=== PATIENT | male | born 2000 | race Caucasian/White ===

== ENCOUNTER 2023-02-12 16:09 | Outpatient (RCR) | payer OTHER, SELFPAY | END 2023-02-14 07:51 | disposition home or self-care (01) | LOC: RPT 16:09 | PROVIDERS: ATTENDING PHYSICIAN Orthopaedic Surgery Hand Surgery; PRIMARYCARE PHYSICIAN Family Medicine | DX: M75.21 Bicipital tendinitis, right shoulder (principal) | CPT/HCPCS: 97110 ==

== ENCOUNTER 2023-08-06 20:37 | Emergency (ER) | payer OTHER, SELFPAY ==
[2023-08-06 20:56] VITALS: BP 142/96
[2023-08-06] MEDS: ZOFRAN ODT (ORALLY DISINTEGRATING) 4 MG PO (21:02)
--- NOTE | 2023-08-06 22:48 | ED.GENMED ---
History of Present Illness
<GONSALO Reed - Last Filed: 08/07/23 02:49>
General
Chief Complaint: Throat Problem
Source: patient and family
Time Seen by Provider: 08/06/23 22:32
Travel History
Have you had any contact with someone who has COVID-19?: No
Do you have any symptoms of coronavirus? Fever > 100 degrees, chills, cough, shortness of breath, sore throat, loss of taste or smell, muscle aches, or headache?: No
History of Present Illness
History of Present Illness:
22 year old male with no significant past medical hx s/p tonsillectomy today brought in by parents for throat bleeding that began 1 hour [employer]. Pt had tonsillectomy today at [facility] at around 1500. Pt developed bleeding and was told by ENT to
visit the ER. He also reports throat pain and and nausea. States his throat feels like it is closing up. Denies any chest pain, fevers/chills. Denies any bleeding disorder. Pt is not on any blood thinners. He has not taken anything for pain.
Past History
<GONSALO Reed - Last Filed: 08/07/23 02:49>
Past History
ED Past Medical History: Other (Migraine headaches)
ED Past Surgical History: None
Social History
Tobacco: Non-smoker
Alcohol: None
Personal: Single
Living: with family
Employment: Student (College student)
Family History
Family History: Other (Noncontributory)
Review of Systems
<GONSALO Reed - Last Filed: 08/07/23 02:49>
Review of Systems
Allergies reviewed?: Yes
All Other Systems: ROS reviewed and negative except as documented in HPI and ROS
Constitutional: Reports no symptoms
EENT: Reports other (throat bleeding and pain)
Respiratory: Reports no symptoms
Cardiac: Reports no symptoms
ABD/GI: Reports nausea
: Reports no symptoms
Musculoskeletal: Reports no symptoms
Skin: Reports no symptoms
Neurological: Reports no symptoms
Endocrine: Reports no symptoms
Hematologic/Lymphatic: Reports no symptoms
Psychiatric: Reports no symptoms
Phy Exam
<ST BriannaIL - Last Filed: 08/07/23 02:49>
General Physical Exam
General Presentation: well appearing and moderate distress
General age: appears stated age
General Skin: warm and dry
General Habitus: normal
General Mental: alert
General Hydration: appears well hydrated
ENT Exam
ENT Exam: other (active bleeding to bilateral tonsillectomy incision sites, blood clots presents)
Cardiovascular Exam
Cardiovascular Exam: no edema, no gallop, no murmur and tachycardia
Pulmonary Exam
Pulmonary Exam: lungs clear and no respiratory distress
Neurological Exam
Neurological Exam: alert and oriented x3
Skin Exam
Skin Exam: normal color and warm/dry
Psychiatric Exam
Psychiatric Exam: normal mood/affect
Course
<GONSALO Reed - Last Filed: 08/07/23 02:49>
Orders/Labs/Results
Orders:
Orders
08/06/23 21:00
Ondansetron Orally Disint [Zofran Odt (Orally Disintegrating)] 4 mg .ROUTE .ST-MED ONE
08/06/23 21:02
Ondansetron Orally Disint [Zofran Odt (Orally Disintegrating)] 4 mg PO NOW STA
08/06/23 23:09
Tranexamic Acid 1,000 mg INH R NOW STA
08/07/23 00:58
Oxycodone [Roxicodone Oral Solution] 5 mg PO NOW STA
08/07/23 01:42
Ondansetron Orally Disint [Zofran Odt (Orally Disintegrating)] 4 mg PO NOW STA
Vital Signs
Initial and Last Documented VS:
Initial Vital Signs
Temp Pulse Resp BP Pulse Ox
98.2 F 109 18 142/96 98
08/06/23 20:56 08/06/23 20:56 08/06/23 20:56 08/06/23 20:56 08/06/23 20:56
Last Documented Vital Signs
Temp Pulse Resp BP Pulse Ox
98.2 F 111 18 119/75 98
08/06/23 20:56 08/07/23 01:13 08/06/23 20:56 08/07/23 01:13 08/07/23 01:13
<Tad Hassan, - Last Filed: 08/07/23 01:37>
Orders/Labs/Results
Orders:
Orders
08/06/23 21:00
Ondansetron Orally Disint [Zofran Odt (Orally Disintegrating)] 4 mg .ROUTE .STK-MED ONE
08/06/23 21:02
Ondansetron Orally Disint [Zofran Odt (Orally Disintegrating)] 4 mg PO NOW STA
08/06/23 23:09
Tranexamic Acid 1,000 mg INH R NOW STA
08/07/23 00:58
Oxycodone [Roxicodone Oral Solution] 5 mg PO NOW STA
08/07/23 01:42
Ondansetron Orally Disint [Zofran Odt (Orally Disintegrating)] 4 mg PO NOW STA
Vital Signs
Initial and Last Documented VS:
Initial Vital Signs
Temp Pulse Resp BP Pulse Ox
98.2 F 109 18 142/96 98
08/06/23 20:56 08/06/23 20:56 08/06/23 20:56 08/06/23 20:56 08/06/23 20:56
Last Documented Vital Signs
Temp Pulse Resp BP Pulse Ox
98.2 F 111 18 119/75 98
08/06/23 20:56 08/07/23 01:13 08/06/23 20:56 08/07/23 01:13 08/07/23 01:13
<GONSALO Reed - Last Filed: 08/07/23 02:49>
MDM/Problems Addressed
Differential Diagnosis Includes:
bleeding to tonsillectomy incision sites
MDM/Problems Addressed:
22 year old male who presents with throat bleeding and pain that occurred just prior to arrival.
<GONSALO Reed - Last Filed: 08/07/23 02:49>
*Critical Care Note
Total Time (30-74mins, 75-104mins- exclusive of procedures): Not Applicable
ED Attending Note
<GONSALO Reed - Last Filed: 08/07/23 02:49>
-
Portions of this chart may have been created with voice recognition software.� Occasional wrong word or��sound alike� substitutions may have occurred due to the inherent limitations of voice recognition software.
<Tad Hassan DO - Last Filed: 08/07/23 01:37>
ED Attending Note
Patient seen and examined by attending physician: Yes
I performed the substantive portion of visit, reviewed & personally made and approve the management plan that is documented in note by myself or JESE.: Yes
ED Attending Note:
22-year-old male presents with bleeding status post tonsillectomy at [facility]. He had the procedure earlier today. He developed bleeding.
Patient was seen in conjunction with the PA student. I have reviewed and agree with the history and treatment plan presented. On my independent physical exam, patient is awake, alert, and oriented x3, bleeding from both the left and right side
tonsillar pillars. I was able to cauterize and apparent bleeding on the right. The left side was bleeding a little bit more vigorously. With suction and ice water flushes I was able to isolate a small bleeding cauterized that as well. TXA
nebulizer ordered.
Patient's bleeding stopped after TXA and cauterization. Patient will follow-up with [facility] as previously directed
Discharge Plan
Departure
Patient Disposition: Home (Routine Discharge)
Date of Disposition: 08/07/23
Time of Disposition: 01:31
Patient with high blood pressure during this ER visit?: No
Condition: Good
Discharge Problem:
Hemorrhage following tonsillectomy
Instructions: Tonsillectomy (DC), Bleeding After Surgery, Diet After Mouth or Throat Surgery
Prescriptions:
New
oxycodone 5 mg/5 mL solution
2.5 mg PO Q8H Qty: 15 0RF
No Action
eozdddkeaw-zmogaemhhxszd-amtb 1 TAB tablet
1 tab PO DAILYPRN PRN (Reason: Migraine)
dicyclomine 20 MG tablet
20 mg PO QIDPRN PRN (Reason: crampy abdominal pain) Qty: 20 0RF
Referrals:
Gaston Lewis MD [Family Provider] -
Activity Restrictions/Additional Instructions:
Your prescriptions were sent electronically to the pharmacy that you specified.
Tylenol 500 mg every 4-6 hours as needed
Ibuprofen 400 mg every 6 hours as needed
It was a pleasure meeting you and taking part in your care. We hope for your continued healing and wellness.
Please read discharge instructions in their entirety. However, they are for general education and may not describe your exact diagnosis at discharge. Information on your ER visit and medical conditions were discussed with you along with appropriate
follow up information...
If indicated, please take your medications as instructed and indicated on discharge paperwork.
Please schedule a follow up appointment as directed. Call to schedule an appointment
Please return to the emergency department with ANY change in, persisting, or worsening of symptoms. If any of your symptoms do not improve, or persist, or become more severe within 6-12 hours, please return to the emergency department for further
care.
Please return to the emergency department if you develop a headache, neck pain/stiffness, fever greater than 100.4F, chest pain, shortness of breath, persistent nausea, vomiting, slurred speech, difficulty walking, numbness/tingling, weakness, signs
of infection or any other symptoms that are worrisome to you.
If you have any questions or concerns please do not hesitate to call the Hospital at or E-mail me directly at [email or web address]
Interventions
Interventions:
*Risk Screen - Suicide Last Done: 08/07/23 02:35
*General Assessment Last Done: 08/06/23 22:50
*Neglect/Abuse Screening Last Done: 08/06/23 22:50
*Nursing Disposition Last Done: 08/07/23 02:35
ED-EENT Assessment Last Done: 08/06/23 23:03
ED- Pulmonary Assessment Last Done: 08/06/23 23:03
Discharge Date and Time
Discharge Date/Time: 08/07/23 02:36
Print Language: SWAZI
[2023-08-07] MEDS: TRANEXAMIC ACID 1000 MG INH (00:10)
[2023-08-07] MEDS: ROXICODONE ORAL SOLUTION 5 MG PO (01:07)
[2023-08-07 01:13] VITALS: BP 119/75
[2023-08-07] MEDS: ZOFRAN ODT (ORALLY DISINTEGRATING) 4 MG PO (01:48)
== END 2023-08-07 02:36 | disposition home or self-care (01) ==
LOC: EMR 20:37
PROVIDERS: EMERGENCY PHYSICIAN Student in an Organized Health Care Education/Training Program; FAMILY PHYSICIAN Family Medicine
DX: J95.830 Postprocedural hemorrhage of a respiratory system organ or structure following a respiratory system procedure (principal)
CPT/HCPCS: 99285; 42960; 94640

== ENCOUNTER → 2025-01-06 10:43 | Outpatient (REF) | payer BC, SELFPAY | LOC: RAD 10:43 | PROVIDERS: ATTENDING PHYSICIAN Physician Assistant; FAMILY PHYSICIAN Family Medicine | DX: R05.1 Acute cough (principal); Z77.120 Contact with and (suspected) exposure to mold (toxic) | CPT/HCPCS: 71046 ==